=== PATIENT | female | born 1965 | race Caucasian/White ===

== ENCOUNTER 2017-08-22 10:02 | Emergency (ER) | payer OTHER ==
[~2017-08-22] VITALS: Ht 162.6 cm; Wt 78.2 kg
[2017-08-22] MEDS ORDERED: NOR5 PO (10:36)
[2017-08-22 10:42] VITALS: BP 94/57
== END 2017-08-22 10:42 | disposition short-term general hospital (02) ==
LOC: ED 10:02
DX: I21.09 ST elevation (STEMI) myocardial infarction involving other coronary artery of anterior wall (principal); I10 Essential (primary) hypertension; K21.9 Gastro-esophageal reflux disease without esophagitis; Z88.5 Allergy status to narcotic agent; Z88.6 Allergy status to analgesic agent; Z88.2 Allergy status to sulfonamides
CPT/HCPCS: J1644; J2270